=== PATIENT | female | born 1945 | race African-American/Black ===

== ENCOUNTER → 2016-05-14 | Outpatient (CLI) | payer OTHER, MEDICARE ==
--- NOTE | 2016-05-15 09:10 | RAD ---
DATE: 05/14/2016. EXAM: DIGITAL SCREEN BILAT W/CAD HISTORY: Routine screening. COMPARISON: 01/09/2014. This study was interpreted with the benefit of Computerized Aided Detection (CAD). FINDINGS: 2-D mammography was performed. Both breasts are heterogeneously dense, limiting the sensitivity of mammography. There is a rounded density identified in the superior left breast mid depth best seen on the MLO view. This may be laterally located on the CC view. Additional views are recommended. No suspicious calcifications are seen. The axillae are unremarkable. IMPRESSION: Left breast density. Additional views are recommended. BI-RADS CATEGORY: 0 INCOMPLETE: NEEDS ADDITIONAL IMAGING EVALUATION AND/OR PRIOR MAMMOGRAMS FOR COMPARISON. RECOMMENDED FOLLOW-UP: ADD ADDITIONAL IMAGING PQRS compliance statement: Patient information was entered into a reminder system with a target due date for the next mammogram. Mammography is a sensitive method for finding small breast cancers, but it does not detect them all and is not a substitute for careful clinical examination. A negative mammogram does not negate a clinically suspicious finding and should not result in delay in biopsying a clinically suspicious abnormality. "Our facility is accredited by the [employer] Mammography Program."
== END | disposition home or self-care (01) ==
LOC: MAMMO 13:17
PROVIDERS: ATTEND Family Medicine
DX: Z12.31 Encounter for screening mammogram for malignant neoplasm of breast (principal)
CPT/HCPCS: G0202; 77067